=== PATIENT | male | born 1995 | race Caucasian/White ===

== ENCOUNTER 2016-06-23 21:42 | Emergency (ER) | payer OTHER, BC ==
[2016-06-23 21:49] VITALS: BP 121/93
--- NOTE | 2016-06-23 22:29 | EDM.PDOC ---
ED HPI Trauma - General Chief Complaint: Lower Extremity Injury/Pain Stated Complaint: RIGHT KNEE INJURY Time Seen by Provider: 06/23/16 22:10 Source: Reports: Patient History Limitations: Reports: No limitations - History of Present Illness INITIAL COMMENTS - FREE TEXT/NARRATIVE: This 20 yo male patient reports to the ED due to a right knee injury. The patient reports he was at work this morning (at about 0630) when he was attempting to climb over a gate and fell on his right knee. The patient reports he has been attempting to rest, ice and elevate the knee throughout the day, but has pain when he attempts to walk on the knee. The patient reports he took Tylenol Arthritis earlier today for the pain. Symptom Onset Date: 06/23/16 Symptom Onset Time: 06:30 Occurred When: this morning Occurred Where: work Method of Injury: fall Severity: moderate Pain/Injury Location: Reports: lower extremity, right Consciousness: Reports: no loss of consciousness Associated Symptoms: Reports: no other symptoms Allergies/ADRs: Allergies No Known Allergies Allergy (Verified 06/23/16 21:44) Past Medical History - Past Health History Medical/Surgical History: Denies Medical/Surgical History HEENT History: Reports: None Cardiovascular History: Reports: None Respiratory History: Reports: None Gastrointestinal History: Reports: None Genitourinary History: Reports: None Musculoskeletal History: Reports: None Neurological History: Reports: None Psychiatric History: Reports: None Endocrine/Metabolic History: Reports: None Hematologic History: Reports: None Immunologic History: Reports: None Oncologic (Cancer) History: Reports: None Dermatologic History: Reports: None - Past Surgical History Musculoskeletal Surgical History: Reports: Other (see below) Other Musculoskeletal Surgeries/Procedures:: right knee tibula and fibula fractures surgically fixed. Social & Family History - Tobacco Use Smoking Status *Q: Never Smoker - Caffeine Use Caffeine Use: Reports: Soda - Alcohol Use Days Per Week of Alcohol Use: 0 - Recreational Drug Use Recreational Drug Use: No - Living Situation & Occupation Living situation: Reports: with family Occupation: student Review of Systems - Review of Systems Review Of Systems: ROS reveals no pertinent complaints other than HPI. Trauma Exam - Physical Exam Exam: See Below Exam Limited By: No limitations General Appearance: Reports: alert, WD/WN, mild distress Head: Reports: atraumatic, normocephalic Eyes: bilateral eye: EOMI, normal inspection, PERRL Ears: Reports: normal external exam, normal canal, hearing grossly normal, normal TMs Nose: Reports: normal inspection, normal mucousa, no blood Throat/Mouth: Reports: Normal inspection, Normal lips, Normal teeth, Normal gums , Normal oropharynx, Normal voice, No airway compromise Neck: Reports: non-tender, full range of motion, normal alignment, normal inspection Respiratory Exam: Reports: no respiratory distress, lungs clear, normal breath sounds Cardiovascular: Reports: normal peripheral pulses, regular rate, rhythm, no edema, no gallop, no JVD, no murmur, no rub GI/Abdominal: Reports: normal bowel sounds, soft, non tender, no organomegaly, no distention, no abnormal bruit, no mass (Male) Exam: Deferred Rectal (Males) Exam: Deferred Back: Reports: full range of motion, normal inspection, non-tender Extremities: Reports: joint effusion, pain with movement, tenderness (right knee with moderate soft tissue swelling) Neurologic: Reports: sand polisher II-XII nml as tested, no motor/sensory deficits, alert , normal mood/affect, oriented x 3 Skin: Reports: Normal color, Warm/dry Course - Vital Signs Last Recorded V/S: Last Vital Signs Temp 36.8 C 06/23/16 21:48 Pulse 85 06/23/16 21:48 Resp 20 06/23/16 21:48 BP 121/93 H 06/23/16 21:48 Pulse Ox 100 06/23/16 21:48 - Orders/Labs/Meds Orders: Active Orders 24 hr Category Date Time Status DME for Discharge [COMM] Urgent Oth 06/23/16 22:29 Ordered Departure - Departure Time of Disposition: 22:25 Disposition: Home, Self-Care 01 Condition: fair Clinical Impression: Contusion of right knee Qualifiers: Encounter type: initial encounter Qualified Code(s): S80.01XA - Contusion of right knee, initial encounter Right knee pain Qualifiers: Chronicity: acute Qualified Code(s): M25.561 - Pain in right knee Instructions: Knee Immobilizer, [id number], Knee Sprain, [id number], Contusion, [id number] Forms: ED Department Discharge Care Plan Goals: The patient and his father were advised of the examination and x-ray results during the visit. The patient was encouraged to rest, ice and elevate the right knee over the next 48 hours. The patient was placed in a right knee immobilizer while in the ED. If the patient has any additional symptoms or further concerns , the patient should follow-up with his primary care facility or return to the ED. - My Orders Last 24 Hours: My Active Orders 06/23/16 22:29 DME for Discharge [COMM] Urgent - Assessment/Plan Last 24 Hours: My Active Orders 06/23/16 22:29 DME for Discharge [COMM] Urgent
== END 2016-06-23 22:44 | disposition home or self-care (01) ==
LOC: DL.ED 21:42
DX: S80.01XA Contusion of right knee, initial encounter (principal); W19.XXXA Unspecified fall, initial encounter
CPT/HCPCS: 73562-RT; 99283

== ENCOUNTER 2017-08-23 20:35 | Emergency (ER) | payer OTHER, BC ==
--- NOTE | 2017-08-23 20:55 | EDM.PDOC ---
ED HPI GENERAL MEDICAL PROBLEM - General Chief Complaint: Lower Extremity Injury/Pain Stated Complaint: [id number] XRAY ON FOOT Time Seen by Provider: 08/23/17 20:50 Source of Information: Reports: Patient History Limitations: Reports: No Limitations - History of Present Illness INITIAL COMMENTS - FREE TEXT/NARRATIVE: c/o right foot pain, 200# cart fell on foot at 1100 this am . Increased pain with weight bearing and movement of foot. Wearing steel toed boots but object hit behind toeplate. Right Feet Pain Score (Numeric/FACES): 9 - Related Data Allergies Allergy/AdvReac Type Severity Reaction Status Date / Time No Known Allergies Allergy Verified 06/23/16 21:44 Home Meds: Home Meds . [No Known Home Meds] 06/30/14 [History] Past Medical History - Past Health History Medical/Surgical History: Denies Medical/Surgical History HEENT History: Reports: None Cardiovascular History: Reports: None Respiratory History: Reports: None Gastrointestinal History: Reports: None Genitourinary History: Reports: None Musculoskeletal History: Reports: None Neurological History: Reports: None Psychiatric History: Reports: None Endocrine/Metabolic History: Reports: None Hematologic History: Reports: None Immunologic History: Reports: None Oncologic (Cancer) History: Reports: None Dermatologic History: Reports: None - Past Surgical History Musculoskeletal Surgical History: Reports: Other (See Below) Social & Family History - Tobacco Use Smoking Status *Q: Never Smoker - Caffeine Use Caffeine Use: Reports: Soda - Alcohol Use Days Per Week of Alcohol Use: 0 - Recreational Drug Use Recreational Drug Use: No - Living Situation & Occupation Living situation: Reports: with Family Occupation: Student Review of Systems - Review of Systems Review Of Systems: ROS reveals no pertinent complaints other than HPI. ED EXAM, GENERAL - Physical Exam Exam: See Below Exam Limited By: No Limitations General Appearance: Alert, Mild Distress Eye Exam: Bilateral Eye: EOMI Ears: Normal External Exam Throat/Mouth: Normal Voice Respiratory/Chest: No Respiratory Distress Cardiovascular: Normal Peripheral Pulses Extremities: Limited Range of Motion, Other ( right posterior forefoot swollen, blueish bruising, mild tenderness to palpation and flexion.) Skin Exam: Warm, Dry, Intact, Ecchymosis. No: Erythema Course - Vital Signs Last Recorded V/S: Last Vital Signs Temp 99.2 F 08/23/17 20:45 Pulse 96 08/23/17 20:45 Resp 16 05/03/18 20:45 BP 134/81 08/23/17 20:45 Pulse Ox 100 08/23/17 20:45 - Radiology Interpretation Free Text/Narrative:: Xray right foot negative for fracture Departure - Departure Time of Disposition: 21:28 Disposition: Home, Self-Care 01 Condition: Good Clinical Impression: Contusion of foot, right Qualifiers: Encounter type: initial encounter Qualified Code(s): S90.31XA - Contusion of right foot, initial encounter - Discharge Information Instructions: Crush Injury of the Foot, [id number] Referrals: PCP,None [Primary Care Provider] - Forms: ED Department Discharge Additional Instructions: Rest , ice , elevation, eh wrap weight bearing as tolerated. alternate tylenol 650mg and Ibuprofen 600mg every 4 hours as needed for pain follow up if not improving or symptoms worsen
[2017-08-23 20:58] VITALS: BP 134/81
== END 2017-08-23 21:38 | disposition home or self-care (01) ==
LOC: DL.ED 20:35
DX: S90.31XA Contusion of right foot, initial encounter (principal); W20.8XXA Other cause of strike by thrown, projected or falling object, initial encounter
CPT/HCPCS: 73630-RT; 99283

== ENCOUNTER 2023-09-25 12:31 | Emergency (ER) | payer BC, OTHER ==
[2023-09-25] MEDS: Lidocaine 1% 5 ML VIAL INJECT ONE (12:43)
[2023-09-25] MEDS: Bacitracin Oint 1 GM U/D Packet TOP ONE (12:43)
[2023-09-25] MEDS: Diphtheria,Pertussis(Acell),Tetanus Vaccine 0.5 ML Syringe IM ONE (12:47)
[2023-09-25 12:48] VITALS: BP 150/108; PULSE 82
== END 2023-09-25 13:17 | disposition home or self-care (01) ==
LOC: DL.ED 12:31
DX: S61.412A Laceration without foreign body of left hand, initial encounter (principal); Z23 Encounter for immunization; W26.0XXA Contact with knife, initial encounter
CPT/HCPCS: 12001; 90471; 90715; 99282; A9270; J3490